=== PATIENT | male | born 1995 | race Caucasian/White ===

== ENCOUNTER → 2019-05-28 | Outpatient (CLI) | payer OTHER | END | disposition home or self-care (01) | LOC: LAB SHORT 08:35 → LAB EV 08:35 | DX: L03.116 Cellulitis of left lower limb (principal) | CPT/HCPCS: 87070; 87075; 87077; 87147; 87186; 87205 ==

== ENCOUNTER 2019-05-30 06:22 | Day surgery (SDC) | payer OTHER ==
[~2019-05-30] VITALS: Ht 198.1 cm; Wt 98.8 kg
== END 2019-05-30 09:24 | disposition home or self-care (01) ==
LOC: ORSCSDS 06:22
PROVIDERS: Otolaryngology
PROC: 0NSBXZZ Reposition Nasal Bone, External Approach (ICD-10-PCS; principal; 2019-05-30 07:30)
DX: S02.2XXA Fracture of nasal bones, initial encounter for closed fracture (principal); W21.05XA Struck by basketball, initial encounter
CPT/HCPCS: C9046; J1100; J2250; J2405; J2704; J7120